=== PATIENT | male | born 1965 | race Caucasian/White ===

== ENCOUNTER → 2023-09-30 | Outpatient (CLI) | payer BC ==
--- NOTE | 2023-10-18 15:54 | CONS ---
CONSULTATION HISTORY OF PRESENT ILLNESS: A 58-year-old gentleman with history of obstructive sleep apnea-hypopnea syndrome for 20 years. For that period of time, the patient is using the same CPAP equipment. Presently sleep schedule from 10 to 11 p.m. to 6:15 a.m. on weekdays and until 6:30 a.m. on weekend. No problems with falling asleep. During the sleep while patient using CPAP, he wakes up from sleep 2 times, feels excessive daytime sleepiness. The patient sleeps by himself, so no information about snoring in the morning. The patient feels very tired. [place] Sleepiness Scale is 4. PAST MEDICAL HISTORY: BPH, anxiety, depression, hypertension, acid reflux, allergy, anemia, diarrhea PAST SURGICAL HISTORY: Hemorrhoidectomy, left shoulder precancer mole removed. SOCIAL HISTORY: History of smoking for 15 years. Quit. Alcohol consumption, none. FAMILY HISTORY: Hypertension, epilepsy, diabetes mellitus, sleep apnea. REVIEW OF SYSTEMS: Awakenings from sleep. No fevers. No double vision. No recent chest pain. No shortness of breath. No abdominal pain. No bleeding episodes. No blood in the urine. No seizure episodes. PHYSICAL EXAMINATION: GENERAL: The patient in no distress. VITAL SIGNS: BP 143/87, HR 86, RR 18. Weight 273.4, height 5 feet 11 inches. Body mass index 38.0. Neck 17-1/4 inches in circumference. HEENT: PERRLA, EOMI, extremely low position of soft palate, Mallampati 3 to Mallampati 4. NECK: Supple, no JVD. LUNGS: Clear. HEART: S1, S2 regular. No murmurs. ABDOMEN: Obese, soft, nontender. EXTREMITIES: No edema. SHEETER HELPER: No focal deficit. IMPRESSION: 1. Obstructive sleep apnea-hypopnea syndrome for 20 years. The patient continues to use CPAP equipment, but wakes up while using CPAP and CPAP is very old. Extremely low position of soft palate, Mallampati 3-4. Wide neck, 17-1/4 inches in circumference, obstructive sleep apnea-hypopnea syndrome. 2. Obesity. 3. Hypertension. 4. Anxiety. 5. Depression. 6. Benign prostatic hyperplasia. 7. Acid reflux. 8. History of anemia. 9. History of diverticulitis and low functioning pancreas. PLAN: 1. Polysomnography for evaluation of patient breathing during sleep at the present time. 2. Following plan after reading sleep study. 3. Sleep hygiene with time in bed for at least 8 hours. 4. Precautions related to driving. No driving if feeling sleepiness. Thank you very much for referring this patient for consultation. Farhat Manjarrez MD, PhD, FAASM Diplomat of [employer] Sleep Medicine Board of [employer] Bundle Cutter of [facility] [place] MMODL / IJN: [id number] /
== END ==
LOC: 3 N SLEEP 15:40
PROVIDERS: ATTEND Internal Medicine
CPT/HCPCS: 99202

== ENCOUNTER → 2023-12-19 | Outpatient (CLI) | payer BC ==
--- NOTE | 2023-12-26 17:56 | P.PCN ---
Description of Procedure: CLINICAL: A home sleep apnea test has been done for confirmation of possible obstructive sleep apnea-hypopnea syndrome. DESCRIPTION OF PROCEDURE: RESULTS: Recording time was 7 hours 58 minutes. Evaluation time was 7 hours 39 minutes. Evaluation time is sufficient for making conclusion about results of the test. Raw data of sleep recording has been reviewed and is adequate. Respiratory channel showed 232 apneas and 156 hypopneas. Apnea-hypopnea index was 50.6 per hour. Pulse rate in the range between minimum 40, maximum 94, average 54 by computer calculation. Lowest desaturation was 76%. IMPRESSION: 1. Severe Obstructive Sleep Apnea Hypopnea Syndrome. Please see other impressions from consultation. PLAN: 1. The patient should have PAP titration for correction of respiratory abnormallities during sleep. 2. Sleep hygiene with regular time in bed for at least 8 hours. 3. Watching and losing weight. 4. No driving if feeling any sleepiness. Thank you very much for allowing me to participate in the management of your patient. Sincerely, Farhat Manjarrez MD, PhD, FAASM Diplomat of [employer] Sleep Medicine Board of [employer] Physical Therapy Supervisor of [facility] [place] cc: Jacob Ragsdale MD
== END ==
LOC: 3 N SLEEP 17:30
PROVIDERS: ATTEND Internal Medicine
DX: G47.33 Obstructive sleep apnea (adult) (pediatric) (principal); I10 Essential (primary) hypertension; G47.10 Hypersomnia, unspecified

== ENCOUNTER 2024-01-27 19:47 | Outpatient (CLI) | payer BC ==
--- NOTE | 2024-01-30 11:59 | P.PCN ---
Description of Procedure: CLINICAL: Titration with positive air pressure has been done for correction of respiratory abnormalities during sleep. DESCRIPTION OF PROCEDURE: The standard montage for clinical polysomnography included the electroencephalogram, the electrocardiogram, the mentalis surface electromyography and Lead II cardiography. The respiratory battery consisted of measurements of nasal /buccal air flow, pressure transducer measurements from the nose, thoracic and /or abdominal effort and intercostal surface electromyography. Video monitoring has been done to check for any parasomnia events. Nocturnal oxyhemoglobin saturations were obtained by finger oximetry. Step-mcpherson titration with positive airway pressure was utilized to control respiratory events. Raw data of sleep recording has been reviewed and is adequate. RESULTS: Sleep efficiency was decreased to 60.8%. Latency to sleep onset was significantly prolonged to 89.0 minutes.]. Sleep architecture showed stage N1 was significantly increased to 27.6%, Delta sleep was absent 0%, REM sleep was short 14.0%. Heart rate was minimum 53 BPM, maximum 68 BPM, average 59 BPM. EMG showed 23.3 periodic limb movements per hour with 0 micriarousals per hour. PAP titration have been done with CPAP up to the pressure 13 cm H2O. The best results were at the pressure 11 cm H2O. Apnea hypopnea index reduced to 0.6. IMPRESSION: 1. Obstructive sleep apnea hypopnea syndrome on controle with PAP treatment. 2. Periodic limb movements have been documented. Please see other impressions from consultation. PLAN: 1. The patient will have treatment with positive air pressure equipment with the level of pressure AutoPAP 5-13 cm H2O and should use it every night for the whole night. 2. Watching weight. 3. Sleep hygiene with regular time in bed for at least 8 hours. 4. No driving if feeling any sleepiness. 5. I will see the patient for follow up visit to explain the results of the t est, recommendations, check compliance with treatment and make any necessary adjustment related to mask fitting, pressure and humidification. 6. Please check iron profile including ferritin level. Low level of iron may increase risk for periodic limb movements Thank you very much for allowing me to participate in the management of your patient. Sincerely, Farhat Manjarrez MD, PhD, FAASM Diplomat of [employer] Sleep Medicine Board of [employer] Client Engagement Manager of [facility] [place] PericotJacob MD
== END 2024-01-28 05:20 | disposition home or self-care (01) ==
LOC: 3 N SLEEP 19:47
PROVIDERS: ATTEND Internal Medicine
DX: G47.33 Obstructive sleep apnea (adult) (pediatric) (principal); G47.61 Periodic limb movement disorder
CPT/HCPCS: 95811